=== PATIENT | female | born 1955 | race Caucasian/White ===

== ENCOUNTER 2016-11-04 22:52 | Emergency (ER) | payer OTHER ==
[2016-11-05] MEDS ORDERED: DEXAMETHASONE 4 MG/ML VIAL ONE (01:28)
[2016-11-05] MEDS ORDERED: DILAUDID 1 MG/ML AMP ONE (01:29)
== END 2016-11-05 02:07 | disposition home or self-care (01) ==
LOC: ER 22:52
DX: M54.31 Sciatica, right side (principal); Z79.899 Other long term (current) drug therapy
CPT/HCPCS: 96372